=== PATIENT | female | born 1985 | race Caucasian/White ===

== ENCOUNTER 2019-03-15 12:48 | Emergency (ER) | payer OTHER ==
[~2019-03-15] VITALS: Ht 177.8 cm; Wt 127.0 kg
[2019-03-15 13:06] LABS: URINE BILIRUBIN NEGATIVE (Negative); URINE BLOOD NEGATIVE (Negative); URINE CLARITY CLEAR; URINE COLOR YELLOW; URINE GLUCOSE-RANDOM* NEGATIVE (Negative); URINE KETONES NEGATIVE (Negative); URINE LEUKOCYTES-REFLEX NEGATIVE (Negative); URINE NITRITE-REFLEX NEGATIVE (Negative); URINE PROTEIN (DIPSTICK) NEGATIVE (Negative); URINE SPECIFIC GRAVITY 1.025 (1.005-1.035); URINE UROBILINOGEN 0.2 E.U./dl (0.2-1.0)
[2019-03-15 13:51] LABS: ABSOLUTE NEUTROPHILS 6.6 thou/uL (1.4-8.2); BASOPHILS 0.4 % (0.0-2.0); EOSINOPHILS 2.3 % (0.0-3.0); HEMATOCRIT 36.6 % (37.0-47.0); LYMPHOCYTES 15.5 % (24.0-44.0); MCH 25.2 pg (26.0-34.0); MCHC 32.7 g/dL (28.0-37.0); MCV 77.1 fL (80.0-100.0); MONOCYTES 6.5 % (1.0-8.0); PLATELET COUNT 219 thou/uL (150-400); POLYS 75.3 % (36.0-66.0); RBC 4.74 mil/uL (4.20-5.00); RDW 17.2 % (10.5-14.5); WBC 8.8 thou/uL (4.0-11.0)
[2019-03-15 14:00] LABS: CREATININE 1.1 mg/dL (0.6-1.0); POTASSIUM 4.1 mmol/L (3.5-5.1)
[2019-03-15 14:06] LABS: ALBUMIN 3.5 g/dL (3.4-5.0); TOTAL BILIRUBIN 0.1 mg/dL (<0.1-1.0); TOTAL PROTEIN 6.8 g/dL (6.4-8.2)
[2019-03-15] MEDS ORDERED: CYCLOBENZAPRINE5 MG PO ×2 (14:07→15:06)
[2019-03-15] MEDS ORDERED: GABAPENTIN 100100 MG PO (14:07)
[2019-03-15] MEDS ORDERED: CLONAZEPAM 1 MG1 M1 PO (14:07)
[2019-03-15] MEDS ORDERED: ADDERALL XR 3030 MG PO (14:07)
[2019-03-15] MEDS ORDERED: ZANTAC 150MG T150 MG PO (14:08)
[2019-03-15] MEDS ORDERED: CLARITIN10 MG PO (14:08)
[2019-03-15] MEDS ORDERED: WELLBUTRIN XL150 MG PO (14:09)
[2019-03-15] MEDS ORDERED: NORCO 5-325 TA1 EACH PO (15:06)
[2019-03-15] MEDS ORDERED: MOBIC15 MG PO (15:06)
[2019-03-15 15:28] VITALS: BP 111/54
== END 2019-03-15 15:34 | disposition home or self-care (01) ==
LOC: ER 12:48
PROVIDERS: Emergency Medicine
DX: M54.5 Low back pain (principal); Z88.5 Allergy status to narcotic agent

== ENCOUNTER 2019-06-30 20:41 | Emergency (ER) | payer OTHER ==
[~2019-06-30] VITALS: Ht 177.8 cm; Wt 127.0 kg
[~2019-06-30 20:41] MED LIST: ADDERALL XR 3030 MG PO; CLARITIN10 MG PO; CLONAZEPAM 1 MG1 M1 PO; CYCLOBENZAPRINE5 MG PO; GABAPENTIN 100100 MG PO; MOBIC15 MG PO; NORCO 5-325 TA1 EACH PO; WELLBUTRIN XL150 MG PO; ZANTAC 150MG T150 MG PO
[2019-06-30 23:12] LABS: ABSOLUTE NEUTROPHILS 5.4 thou/uL (1.4-8.2); BASOPHILS 0.4 % (0.0-2.0); EOSINOPHILS 1.9 % (0.0-3.0); HEMATOCRIT 34.6 % (37.0-47.0); HEMOGLOBIN 11.5 gm/dL (12.0-15.0); LYMPHOCYTES 18.6 % (24.0-44.0); MCH 26.5 pg (26.0-34.0); MCHC 33.3 g/dL (28.0-37.0); MCV 79.6 fL (80.0-100.0); PLATELET COUNT 218 thou/uL (150-400); POLYS 72.1 % (36.0-66.0); RBC 4.35 mil/uL (4.20-5.00); RDW 17.1 % (10.5-14.5); WBC 7.5 thou/uL (4.0-11.0)
[2019-06-30 23:14] LABS: CALCIUM 8.4 mg/dL (8.5-10.1); CREATININE 1.1 mg/dL (0.6-1.0); POTASSIUM 3.7 mmol/L (3.5-5.1)
[2019-07-01 01:40] VITALS: BP 119/64
== END 2019-07-01 01:41 | disposition home or self-care (01) ==
LOC: ER 20:41
PROVIDERS: Emergency Medicine
DX: S00.11XA Contusion of right eyelid and periocular area, initial encounter (principal); S09.8XXA Other specified injuries of head, initial encounter; N80.9 Endometriosis, unspecified; F41.9 Anxiety disorder, unspecified; Z79.899 Other long term (current) drug therapy; Z88.6 Allergy status to analgesic agent; Y04.0XXA Assault by unarmed brawl or fight, initial encounter; Y93.89 Activity, other specified; Y92.89 Other specified places as the place of occurrence of the external cause; Y99.8 Other external cause status

== ENCOUNTER 2019-11-09 21:55 | Inpatient (IN) | payer OTHER ==
[~2019-11-09] VITALS: Ht 177.8 cm; Wt 110.2 kg
[2019-11-09 22:06] VITALS: BP 157/76
[2019-11-09 22:19] LABS: URINE BILIRUBIN NEGATIVE (Negative); URINE BLOOD NEGATIVE (Negative); URINE CLARITY CLEAR; URINE COLOR YELLOW; URINE GLUCOSE-RANDOM* NEGATIVE (Negative); URINE KETONES NEGATIVE (Negative); URINE LEUKOCYTES-REFLEX NEGATIVE (Negative); URINE NITRITE-REFLEX NEGATIVE (Negative); URINE PROTEIN (DIPSTICK) NEGATIVE (Negative); URINE SPECIFIC GRAVITY 1.015 (1.005-1.035); URINE UROBILINOGEN 0.2 E.U./dl (0.2-1.0)
[2019-11-09 23:36] LABS: ABSOLUTE NEUTROPHILS 6.5 thou/uL (1.4-8.2); BASOPHILS 0.8 % (0.0-2.0); EOSINOPHILS 2.1 % (0.0-3.0); HEMATOCRIT 39.9 % (37.0-47.0); HEMOGLOBIN 13.2 gm/dL (12.0-15.0); LYMPHOCYTES 24.3 % (24.0-44.0); MCH 27.2 pg (26.0-34.0); MCHC 33.2 g/dL (28.0-37.0); MCV 82.1 fL (80.0-100.0); MONOCYTES 7.3 % (1.0-8.0); PLATELET COUNT 249 thou/uL (150-400); POLYS 65.5 % (36.0-66.0); RBC 4.86 mil/uL (4.20-5.00); RDW 15.1 % (10.5-14.5)
[2019-11-09 23:48] LABS: POTASSIUM 4.1 mmol/L (3.5-5.1)
[2019-11-10 02:56] VITALS: BP 121/67
[2019-11-10 03:23] VITALS: BP 121/67
[2019-11-10 03:36] VITALS: BP 124/78
--- NOTE | 2019-11-10 04:49 | NUR ---
PATIENT ALERT AND ORIENTED X4. ARRIVED VIA WHEELCHAIR FROM ED WITH RN AND FRIEND. ABLE TO WALK TO BED WITH STEADY GAIT. C/O PAIN TO RIGHT FLANK AREA. IVF STARTED. RESTING QUIETLY.
[2019-11-10 08:19] VITALS: BP 93/54
--- NOTE | 2019-11-10 12:04 | NUR ---
PT ADMITTED RELATED TO RIGHT FLANK. CM REVIEWED CHART AND SPOKE WITH CARE TEAM. CM MET WITH PT AT BEDSIDE THIS DAY. PT IS A&O X4. CM ROLE INTRODCUED. PT INDICATED SHE LIVES IN A HOUSE ALONE WITH 3 STEPS TO ENTER AND NO STEPS INSIDE. 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 PT INDICATED NO DME OR HH HX. PT INDICATED SHE PLANS TO RETURN HOME ONCE MEDICALLY STABLE. CM TO FOLLOW INDICATED SHOULD ANY DC NEEDS ARRISE. ANTICIPATING SURGICAL INTERVETNION.
[2019-11-10 15:01] VITALS: BP 132/77
--- NOTE | 2019-11-10 17:34 | NUR ---
ASSUMED CARE AT 0700, SHIFT ASSESMENT DONE, MEDS GIVEN, VSS. REPORTED SEVERE PAIN, PRN ORAL AND IV PAIN MEDS GIVEN. UP AD FRIDA, ROOM AIR. WILL CONTINUE TO ASSESS AND ASSIST WITH ADLs NEEDED.
[2019-11-10 20:25] VITALS: BP 116/77
--- NOTE | 2019-11-11 04:33 | NUR ---
ASSUMED CARE OF PT AT 1900HRS. PT IS ALERT AND ORIENTED AND LETS NEEDS BE KNOWN. PT IS UP AD FRIDA. FAMILY IS AT BEDSIDE. PT COMPLAINED OF PAIN AND NAUSEA AND WAS TREATED WITH PRN MEDS. VSS AND NO S/S OF ACUTE DISTRESS. WILL CONTINUE TO MONITOR.
[2019-11-11 06:31] LABS: ABSOLUTE NEUTROPHILS 3.6 thou/uL (1.4-8.2); BASOPHILS 0.4 % (0.0-2.0); EOSINOPHILS 4.1 % (0.0-3.0); HEMATOCRIT 39.3 % (37.0-47.0); HEMOGLOBIN 12.7 gm/dL (12.0-15.0); LYMPHOCYTES 24.2 % (24.0-44.0); MCH 27.1 pg (26.0-34.0); MCHC 32.4 g/dL (28.0-37.0); MCV 83.5 fL (80.0-100.0); MONOCYTES 6.3 % (1.0-8.0); PLATELET COUNT 211 thou/uL (150-400); RDW 15.4 % (10.5-14.5); WBC 5.5 thou/uL (4.0-11.0)
[2019-11-11 06:57] LABS: CALCIUM 8.4 mg/dL (8.5-10.1); CREATININE 0.9 mg/dL (0.6-1.0); POTASSIUM 4.6 mmol/L (3.5-5.1)
[2019-11-11 07:15] VITALS: BP 110/60
--- NOTE | 2019-11-11 12:30 | NUR ---
CARE TEAM INDICATED THAT PT IS MEDCIALLY STABLE TO DC HOME WITH NO NEEDS THIS DAY. PT IS TO FOLLOW UP ON OUTPATIENT BASIS FOR CONTINUED CARES. NO OTHER CM INTERVETNION INDICATED. CASE CLOSED.
[2019-11-11] MEDS ORDERED: NORCO 7.5-3251 EACH PO (12:41)
[2019-11-11] MEDS ORDERED: MOBIC7.5 MG PO (12:42)
[2019-11-11] MEDS ORDERED: FLEXERIL PO (12:43)
[2019-11-11 13:30] VITALS: BP 131/52
[2019-11-11 13:35] VITALS: BP 110/60
--- NOTE | 2019-11-11 14:55 | NUR ---
Assumed pt care at 7am.Assessment completed.vss.Pt c/o headache rated 7/10. Hydromophone ivp given as ordered with partial relief.Dr Kelsey and Melissa here, dc order noted.Dc summary compile and reviewed with pt.Rx and dc summary given but pt said she can't afford rx given by the doctor.pension manager informed and she assisted pt in getting2 of the rx excluding hydrocodone.Pt requested for dilaudid ivp at dc but Dr eKlsey said no to it.Saline lock dc'd.At 1455,pt dc home ambulatory with friend.
== END 2019-11-11 15:19 | disposition home or self-care (01) | DRG 645 ==
LOC: ER 21:55 → 4W 11-10 02:39 → EROBS 11-10 02:39 → 4W 11-10 03:29
PROVIDERS: Emergency Medicine; Nurse Practitioner; Nurse Practitioner Family; ADMIT Hospitalist
DX: E27.9 Disorder of adrenal gland, unspecified (principal); F17.210 Nicotine dependence, cigarettes, uncomplicated; I95.9 Hypotension, unspecified; F41.9 Anxiety disorder, unspecified; Z88.6 Allergy status to analgesic agent; Z71.6 Tobacco abuse counseling; Z79.899 Other long term (current) drug therapy
CPT/HCPCS: 10040

== ENCOUNTER 2020-04-11 22:00 | Emergency (ER) | payer OTHER ==
[~2020-04-11] VITALS: Ht 177.8 cm; Wt 136.1 kg
[~2020-04-11 22:00] MED LIST changes: +FLEXERIL PO; +MOBIC7.5 MG PO; +NORCO 7.5-3251 EACH PO
[2020-04-11 22:22] LABS: URINE BILIRUBIN NEGATIVE (Negative); URINE BLOOD NEGATIVE (Negative); URINE CLARITY CLEAR; URINE COLOR YELLOW; URINE GLUCOSE-RANDOM* NEGATIVE (Negative); URINE KETONES NEGATIVE (Negative); URINE LEUKOCYTES-REFLEX NEGATIVE (Negative); URINE NITRITE-REFLEX NEGATIVE (Negative); URINE PROTEIN (DIPSTICK) NEGATIVE (Negative); URINE SPECIFIC GRAVITY 1.025 (1.005-1.035); URINE UROBILINOGEN 0.2 E.U./dl (0.2-1.0)
[2020-04-11] MEDS ORDERED: DILAUDID 2 MG TA2 MG PO (23:29)
[2020-04-11 23:35] LABS: ABSOLUTE NEUTROPHILS 4.6 thou/uL (1.4-8.2); BASOPHILS 0.4 % (0.0-2.0); EOSINOPHILS 3.6 % (0.0-3.0); HEMATOCRIT 36.8 % (37.0-47.0); HEMOGLOBIN 12.5 gm/dL (12.0-15.0); LYMPHOCYTES 24.5 % (24.0-44.0); MCH 27.6 pg (26.0-34.0); MCHC 33.9 g/dL (28.0-37.0); MCV 81.3 fL (80.0-100.0); MONOCYTES 7.5 % (1.0-8.0); PLATELET COUNT 232 thou/uL (150-400); RBC 4.52 mil/uL (4.20-5.00); RDW 15.8 % (10.5-14.5); WBC 7.2 thou/uL (4.0-11.0)
[2020-04-11 23:38] LABS: ANION GAP 9 mmol/L (7-16); BUN 20 mg/dL (7-18); CALCIUM 8.4 mg/dL (8.5-10.1); CHLORIDE 103 mmol/L (98-107); CO2 26 mmol/L (21-32); CREATININE 0.9 mg/dL (0.6-1.0); GLUCOSE 112 mg/dL (74-106); POTASSIUM 3.9 mmol/L (3.5-5.1); SODIUM 138 mmol/L (136-145)
[2020-04-11 23:50] LABS: ALBUMIN 3.4 g/dL (3.4-5.0); LIPASE 368 U/L (73-393); MAGNESIUM 1.9 mg/dL (1.8-2.4); SGOT 18 U/L (15-37); SGPT 24 U/L (30-65); TOTAL BILIRUBIN 0.1 mg/dL (0.2-1.0); TOTAL PROTEIN 6.5 g/dL (6.4-8.2); TROPONIN-I <0.06 ng/mL (<0.06)
[2020-04-12 01:40] VITALS: BP 132/82
--- NOTE | 2020-04-12 08:29 | EKG ---
[facility] Daniela [place] [address] ELECTROCARDIOGRAM REPORT Name: MARIETTA CAVANAUGH Susan Room #: DEP [facility]#: [id number] Admission: 04/11/20 Attend Phys: Discharge: 04/12/20 Date of : 81 Report #: [id number] THIS REPORT FOR: cc: Edmar Calabrese D.O., C. Mark D.O. Lundgren,Charlie Lloyd MD [facility] ~ THIS REPORT FOR: //name// [facility] ED Test Date: 2020-04-11 Test Time: 22:03:55 Pat Name: MARIETTA CAVANAUGH Department: Room: Gender: Axle Turner: [facility] : 1985 Requested By: George Burkett Order Number: [id number] MD: Charlie Cade Measurements Intervals [place] Rate: 75 P: 43 OR: 150 QRS: 23 QRSD: 98 T: 24 QT: 379 QTc: 424 Interpretive Statements Sinus rhythm RSR' in V1 or V2, probably normal variant Baseline wander in lead(s) V3 No previous ECG available for comparison Electronically Signed On 04-12-2020 8:27:39 CDT by Charlie Cade [email or web address] <ELECTRONICALLY SIGNED> By: Charlie Cade MD, [facility] 04/12/20 0827 02 02 Charlie Cade MD, [facility] /EPI
== END 2020-04-12 05:12 | disposition home or self-care (01) ==
LOC: ER 22:00
PROVIDERS: Emergency Medicine
DX: R07.89 Other chest pain (principal); F41.9 Anxiety disorder, unspecified; G89.29 Other chronic pain; R10.9 Unspecified abdominal pain; K21.9 Gastro-esophageal reflux disease without esophagitis; Z88.5 Allergy status to narcotic agent; Z79.899 Other long term (current) drug therapy; Z98.890 Other specified postprocedural states

== ENCOUNTER 2020-09-03 23:09 | Emergency (ER) | payer OTHER ==
[~2020-09-03] VITALS: Ht 177.8 cm; Wt 136.1 kg
[~2020-09-03 23:09] MED LIST changes: +CHILDREN'S ZYRT10 M1 PO; +DILAUDID 2 MG TA2 MG PO; +HYDROCODON-ACE1 EAC8 PO
[2020-09-04] MEDS ORDERED: NAPROSYN500 MG PO (01:30)
[2020-09-04] MEDS ORDERED: NORCO 5-325 TA1 EAC2 PO (01:30)
[2020-09-04] MEDS ORDERED: NORFLEX100 MG PO (01:30)
[2020-09-04 01:52] VITALS: BP 128/64
== END 2020-09-04 01:50 | disposition home or self-care (01) ==
LOC: ER 23:09
DX: M54.5 Low back pain (principal); R10.9 Unspecified abdominal pain; R11.0 Nausea; D35.00 Benign neoplasm of unspecified adrenal gland; E66.01 Morbid (severe) obesity due to excess calories; F17.210 Nicotine dependence, cigarettes, uncomplicated; Z98.890 Other specified postprocedural states; Z79.899 Other long term (current) drug therapy; Z88.5 Allergy status to narcotic agent; Z68.41 Body mass index [BMI] 40.0-44.9, adult

== ENCOUNTER 2021-03-14 23:44 | Emergency (ER) | payer OTHER ==
[~2021-03-14] VITALS: Ht 177.8 cm; Wt 135.2 kg
[~2021-03-14 23:44] MED LIST changes: +NAPROSYN500 MG PO; +NORCO 5-325 TA1 EAC2 PO; +NORFLEX100 MG PO
[2021-03-15] MEDS ORDERED: NEURONTIN100 MG PO (01:16)
[2021-03-15] MEDS ORDERED: WELLBUTRIN SR150 MG PO (01:17)
[2021-03-15] MEDS ORDERED: NORCO5 PO (02:55)
[2021-03-15 03:27] VITALS: BP 98/64
== END 2021-03-15 03:29 | disposition home or self-care (01) ==
LOC: ER 23:44
DX: M25.561 Pain in right knee (principal); M54.5 Low back pain; Z79.899 Other long term (current) drug therapy; Z88.5 Allergy status to narcotic agent; W11.XXXA Fall on and from ladder, initial encounter; Y93.89 Activity, other specified; Y92.89 Other specified places as the place of occurrence of the external cause; Y99.8 Other external cause status

== ENCOUNTER 2021-08-05 13:22 | Emergency (ER) | payer OTHER ==
[~2021-08-05] VITALS: Ht 177.8 cm; Wt 136.1 kg
[~2021-08-05 13:22] MED LIST changes: +NEURONTIN100 MG PO; +NORCO5 PO; +WELLBUTRIN SR150 MG PO
[2021-08-05 14:10] LABS: ABSOLUTE NEUTROPHILS 5.6 thou/uL (1.4-8.2); BASOPHILS 0.5 % (0.0-2.0); EOSINOPHILS 2.6 % (0.0-3.0); HEMATOCRIT 36.3 % (37.0-47.0); LYMPHOCYTES 20.5 % (24.0-44.0); MCV 84.9 fL (80.0-100.0); MONOCYTES 8.6 % (1.0-8.0); PLATELET COUNT 269 thou/uL (150-400); POLYS 67.8 % (36.0-66.0); RBC 4.28 mil/uL (4.20-5.00); RDW 14.9 % (10.5-14.5); WBC 8.2 thou/uL (4.0-11.0)
[2021-08-05 14:16] LABS: CALCIUM 8.6 mg/dL (8.5-10.1); POTASSIUM 3.4 mmol/L (3.5-5.1)
[2021-08-05 14:22] LABS: ALBUMIN 3.6 g/dL (3.4-5.0); TOTAL BILIRUBIN 0.5 mg/dL (0.2-1.0); TOTAL PROTEIN 6.7 g/dL (6.4-8.2)
[2021-08-05 16:56] VITALS: BP 140/82
== END 2021-08-05 16:58 | disposition home or self-care (01) ==
LOC: ER 13:22
PROVIDERS: Emergency Medicine
DX: S23.3XXA Sprain of ligaments of thoracic spine, initial encounter (principal); S90.02XA Contusion of left ankle, initial encounter; S90.32XA Contusion of left foot, initial encounter; S60.222A Contusion of left hand, initial encounter; S50.02XA Contusion of left elbow, initial encounter; W10.8XXA Fall (on) (from) other stairs and steps, initial encounter; Y93.89 Activity, other specified; Y92.89 Other specified places as the place of occurrence of the external cause; Y99.8 Other external cause status